=== PATIENT | female | born 1995 | race Caucasian/White ===

== ENCOUNTER 2024-10-26 08:33 | Day surgery (SDC) | payer OTHER ==
[~2024-10-26] VITALS: Ht 152.4 cm; Wt 92.2 kg
[~2024-10-26 08:33] MED LIST: K2 P1TAB PO; MAGN200T PO; PRENTAB45 PO; SYNT50TA PO; VALA500T5 PO
[2024-10-26] MEDS ORDERED: LIDOCAINE 2% 100MG/5ML SDV (FOR ANES.) As Ordered ONE (11:49)
[2024-10-26] MEDS ORDERED: propofoL 200 MG/20 ML VIAL As Ordered ONE (11:49)
[2024-10-26 11:59] VITALS: TEMP 98.8
[2024-10-26 12:24] VITALS: BP 123/86; O2SAT 98
== END 2024-10-26 12:28 | disposition home or self-care (01) ==
LOC: M OPP 08:33
PROVIDERS: ATTEND Surgery
DX: Z12.11 Encounter for screening for malignant neoplasm of colon (principal); K64.0 First degree hemorrhoids; Z80.0 Family history of malignant neoplasm of digestive organs; Z79.899 Other long term (current) drug therapy; Z87.891 Personal history of nicotine dependence

== ENCOUNTER → 2025-01-07 | Outpatient (CLI) | payer OTHER ==
[2025-01-07 13:38] LABS: HEMATOCRIT 38.4 % (36.0-47.0); HEMOGLOBIN 13.4 g/dl (12.0-15.5); MEAN CORPUSCULAR HEMOGLOBIN 31.2 pg (27.0-33.0); MEAN CORPUSCULAR HGB CONC 34.9 g/dl (32.0-36.5); MEAN CORPUSCULAR VOLUME 89.3 fl (80.0-96.0); PLATELET COUNT, AUTOMATED 248 10^3/uL (150-450); WHITE BLOOD COUNT 7.8 10^3/uL (4.0-10.0)
[2025-01-07 14:06] LABS: THYROID STIMULATING HORMONE 0.826 uIU/ML (0.55-4.78)
[2025-01-07 14:07] LABS: FREE T4 1.45 NG/DL (0.89-1.76)
[2025-01-07 14:37] LABS: HIV 1&2 SCREEN NEGATIVE (NEGATIVE)
[2025-01-07 14:45] LABS: HEPATITIS C VIRUS ABY INDEX 0.02 INDEX (<0.8)
[2025-01-07 14:50] LABS: Trichomonas vaginalis (AMP) NOT DETECTED (NEGATIVE)
[2025-01-07 15:13] LABS: GC DNA AMPLIFICATION NEGATIVE (NEGATIVE)
== END ==
LOC: M PLALAB 11:30
PROVIDERS: ATTEND Advanced Practice Midwife
DX: Z34.81 Encounter for supervision of other normal pregnancy, first trimester (principal); Z3A.00 Weeks of gestation of pregnancy not specified

== ENCOUNTER → 2025-04-08 | Outpatient (CLI) | payer OTHER ==
[2025-04-08 16:10] LABS: PLATELET COUNT, AUTOMATED 189 10^3/uL (150-450)
[2025-04-08 16:41] LABS: GLUCOSE CHALLENGE TEST 1 HOUR 99 MG/DL (LESS THAN 140)
[2025-04-08 17:16] LABS: HIV 1&2 SCREEN NEGATIVE (NEGATIVE)
[2025-04-08 17:24] LABS: HEPATITIS C VIRUS ABY INDEX 0.09 INDEX (<0.8)
[2025-04-08 17:31] LABS: Trichomonas vaginalis (AMP) NOT DETECTED (NEGATIVE)
[2025-04-08 18:47] LABS: GC DNA AMPLIFICATION NEGATIVE (NEGATIVE)
== END ==
LOC: M PLALAB 11:08
PROVIDERS: ATTEND Nurse Practitioner Family
DX: Z34.80 Encounter for supervision of other normal pregnancy, unspecified trimester (principal)

== ENCOUNTER → 2025-04-10 | Outpatient (CLI) | payer OTHER | LOC: M WHC 06:51 | PROVIDERS: ATTEND Nurse Practitioner Family | DX: Z34.80 Encounter for supervision of other normal pregnancy, unspecified trimester (principal); Z3A.25 25 weeks gestation of pregnancy ==

== ENCOUNTER → 2025-05-24 | Outpatient (CLI) | payer OTHER ==
[2025-05-24 13:32] LABS: FREE T4 1.21 NG/DL (0.89-1.76)
== END ==
LOC: M PLALAB 10:41
PROVIDERS: ATTEND Obstetrics & Gynecology
DX: Z34.80 Encounter for supervision of other normal pregnancy, unspecified trimester (principal)

== ENCOUNTER → 2025-06-21 | Outpatient (REF) | payer OTHER | LOC: M SFHCWAGY 10:06 | PROVIDERS: ATTEND Obstetrics & Gynecology | DX: Z36.85 Encounter for antenatal screening for Streptococcus B (principal); Z3A.36 36 weeks gestation of pregnancy ==

== ENCOUNTER → 2025-06-28 | Outpatient (CLI) | payer OTHER ==
[2025-06-28 16:10] LABS: ALT/SGPT 22.0 U/L (7.0-40); AST/SGOT 19.0 U/L (<34)
== END ==
LOC: M PLALAB 11:55
PROVIDERS: ATTEND Specialist
DX: Z34.83 Encounter for supervision of other normal pregnancy, third trimester (principal)

== ENCOUNTER 2025-07-20 08:52 | Inpatient (IN) | payer OTHER ==
[2025-07-20] VITALS (42 sets, daily range): BP systolic 88–131; BP diastolic 50–91; O2SAT 100
[~2025-07-20] VITALS: Ht 152.4 cm; Wt 92.8 kg
[2025-07-20] MEDS ORDERED: **PENDING PCN ENTRY XX SCH (09:00)
[2025-07-20] MEDS ORDERED: PENICILLIN G POTASSIUM 5 MU IV 5 MU in DEXTROSE 5% (D5W) MINI-BAG PLU 100 ML IV STA (09:56)
[2025-07-20] MEDS ORDERED: LIDOCAINE 1% MDV 20 ML VIAL INFIL PRN (10:00)
[2025-07-20] MEDS ORDERED: CARBOPROST TROMETHAMINE 250 MCG/ML AMP IM PRN (10:00)
[2025-07-20] MEDS ORDERED: OXYTOCIN INJ 10UNITS/ML 1ML VIAL IV PRN (10:00)
[2025-07-20] MEDS ORDERED: LR 1,000 ML IV SCH (10:00)
[2025-07-20] MEDS ORDERED: TRANEXAMIC ACID INJection 1,000 MG in NS 100 ML IV PRN (10:00)
[2025-07-20] MEDS ORDERED: OXYTOCIN INJ 10UNITS/ML 1ML VIAL IM PRN (10:00)
[2025-07-20] MEDS ORDERED: METHYLERGONOVINE MALEATE 0.2 MG/ML 1 ML VIAL IM PRN (10:00)
[2025-07-20] MEDS ORDERED: OXYTOCIN DRIP 30 UNITS in IV 1 EA IV PRN ×3 (10:00)
[2025-07-20 10:31] LABS: PLATELET COUNT, AUTOMATED 161 10^3/uL (150-450)
[2025-07-20 11:02] LABS: HIV 1&2 SCREEN NEGATIVE (NEGATIVE)
[2025-07-20] MEDS: OXYTOCIN DRIP 30 UNITS in IV 1 EA IV SCH (11:06)
[2025-07-20] MEDS: PENICILLIN G POTASSIUM 5 MU IV 5 MU in DEXTROSE 5% (D5W) MINI-BAG PLU 100 ML IV STA (11:06)
[2025-07-20] MEDS: LACTATED RINGER'S 1000 ML IV STA (11:06)
[2025-07-20] MEDS: LR 1,000 ML IV SCH (12:10)
[2025-07-20] MEDS ORDERED: LR 500 ML IV PRN (12:35)
[2025-07-20] MEDS ORDERED: ONDANSETRON 4MG 2ML VIAL IV PRN (12:35)
[2025-07-20] MEDS ORDERED: EPIDURAL/PCA KEYS XX PRN (12:35)
[2025-07-20] MEDS ORDERED: NALOXONE INJ 0.4 MG/1 ML VIAL IV PRN (12:35)
[2025-07-20] MEDS ORDERED: diphenhydrAMINE 50 MG/ML VIAL IV PRN (12:35)
[2025-07-20] MEDS ORDERED: FENTANYL 2 MCG/ML ROPIVACAINE 0.2% IN 0.9% NACL 100 ML IVBAG As Ordered ONE (12:36)
[2025-07-20] MEDS: FENTANYL/ROPIVACAINE/NACL BAG 100 ML EPIDURAL SCH (13:08)
[2025-07-20] MEDS ORDERED: PEN G POT 3,000,000 UNIT/50 ML 3,000,000 UNIT in IV 1 EA IV SCH (14:00)
[2025-07-20] MEDS: PEN G POT 3,000,000 UNIT/50 ML 3,000,000 UNIT in IV 1 EA IV SCH (15:15)
[2025-07-20 18:42] LABS: CORD GAS ABE V -1.0; CORD GAS HCO3 V 23.7 MMOL/L; CORD GAS O2 SAT V 69.3 %; CORD GAS PCO2 V 39.7 mmHg; CORD GAS PH V 7.394 UNITS; CORD GAS PO2 V 26.9 mmHg; CORD GAS SBC V 22.9 MMOL/L; CORD GAS TCO2 V 24.9 MMOL/L
[2025-07-20 18:42] LABS: CORD GAS ABE A -4.5; CORD GAS HCO3 A 22.6 MMOL/L; CORD GAS O2 SAT A 55.7 %; CORD GAS PCO2 A 49.1 mmHg; CORD GAS PH A 7.281 UNITS; CORD GAS PO2 A 23.9 mmHg; CORD GAS SBC A 19.8 MMOL/L; CORD GAS TCO2 A 24.1 MMOL/L
[2025-07-20] MEDS ORDERED: DOCUSATE SODIUM 100 MG CAPSULE PO PRN (18:45)
[2025-07-20] MEDS ORDERED: MOM 30 ML SUSPENSION UDC PO PRN (18:45)
[2025-07-20] MEDS ORDERED: ANUSOL HC CREAM 30 GM TOP PRN (18:45)
[2025-07-20] MEDS: ACETAMINOPHEN 500 MG TAB PO PRN (20:23)
[2025-07-20] MEDS: IBUPROFEN 800 MG TAB PO PRN (20:23)
[2025-07-20] MEDS: DIBUCAINE 1% OINTMENT 30 GM TOP PRN (22:09)
[2025-07-21 06:00] VITALS: BP 116/55; O2SAT 97
[2025-07-21] MEDS: LEVOTHYROXINE 50 MCG TABLET (0.05 MG) PO SCH (06:00)
[2025-07-21] MEDS: PRENATAL VITAMINS CHEWABLE TABLET PO SCH (08:51)
[2025-07-22] MEDS ORDERED: MEASLES,MUMPS,RUBELLA VACCINE INJ (MMR-II) SC.IMMUN ONE (09:00)
== END 2025-07-21 19:33 | disposition home or self-care (01) | DRG 807 ==
LOC: M LDI 08:52 → M OBS 20:41
PROVIDERS: ADMIT Obstetrics & Gynecology; ATTEND Obstetrics & Gynecology
PROC: 10E0XZZ Delivery of Products of Conception, External Approach (ICD-10-PCS; principal; 2025-07-20)
PROC: 3E033VJ Introduction of Other Hormone into Peripheral Vein, Percutaneous Approach (ICD-10-PCS; 2025-07-20)
PROC: 3E0P7GC Introduction of Other Therapeutic Substance into Female Reproductive, Via Natural or Artificial Opening (ICD-10-PCS; 2025-07-20)
DX: O34.211 Maternal care for low transverse scar from previous cesarean delivery (principal); Z37.0 Single live birth; Z3A.40 40 weeks gestation of pregnancy; O70.0 First degree perineal laceration during delivery; O99.824 Streptococcus B carrier state complicating childbirth; Z79.890 Hormone replacement therapy; E03.9 Hypothyroidism, unspecified; O99.284 Endocrine, nutritional and metabolic diseases complicating childbirth; Z79.899 Other long term (current) drug therapy; O48.0 Post-term pregnancy